=== PATIENT | female | born 1950 | race Caucasian/White ===

== ENCOUNTER 2016-04-11 18:19 | Emergency (ER) | payer OTHER, BC ==
[2016-04-11 18:50] VITALS: BP 150/95; PULSE 63; RESP 16; TEMP 97.9; O2SAT 94
--- NOTE | 2016-04-11 19:29 | UCPHY ---
H & P Time Seen by Provider: 04/11/16 18:48 Patient Type: New HPI/ROS: This patient reports a lesion to the plantar aspect of the right foot that is causing her mild discomfort that is gradually increasing. She 1st noticed the sore area on her foot after hiking in [place] while on vacation 8 days ago. The patient is a nurse and she describes mild induration swelling and moderate discomfort that of increased over the past handful of days. ROS: No fevers or other constitutional symptoms. No other skin lesions. No HEENT complaints. No pulmonary complaints. No GI complaints. 7 point ROS is otherwise negative. Past Medical/Surgical History: Otherwise healthy Smoking Status: Never smoked Physical Exam: Physical Exam Vital signs are normal. General: No acute distress Eyes: Pupils equal and react to light. Extraocular motions are intact. No conjunctival injection Lungs: No respiratory distress. Cardiac: Brisk capillary refill is intact throughout. Pulses are 2+ and symmetric in the affected extremity. Skin: On the plantar aspect of the patient's right foot there is a 5 mm area of fluctuance surrounded by 1.5 cm of mild erythema and tenderness. No other skin rash or lesions. Neuro: Alert and oriented x3 with no sensorimotor deficits. Initial differential diagnosis: Furuncle, foreign body with infection Constitutional: Initial Vital Signs Temperature (C) 36.6 C 04/11/16 18:47 Heart Rate 63 04/11/16 18:47 Respiratory Rate 16 04/11/16 18:47 Blood Pressure 150/95 H 04/11/16 18:47 O2 Sat (%) 94 04/11/16 18:47 O2 Delivery Mode Room Air Allergies/Adverse Reactions: benzoin Allergy (Verified 04/11/16 18:46) Home Medications: Medication Instructions Recorded Doxycycline Hyclate [Vibramycin 100 mg PO BID #20 cap 04/11/16 100 MG (*)] Hydrocodone/APAP 5/325 [[place] 1 - 2 tab PO Q4PRN PRN #12 tab 04/11/16 5/325 (*)] Synthroid 04/11/16 MDM/Departure - MDM Diagnostics: Wound cultures pending Procedures: I&D abscess: After verbal consent, chlorhexidine scrub, 27 gauge needle with 1 % plain lidocaine-3 mL injected with good effect under sterile conditions I used a 11. Scalpel blade to make a small T-shaped incision 5 mm in size with immediate release of a small amount of purulent material sent for culture. Explored the wound and found no foreign bodies. Irrigated the wound with saline. A dressing is placed. She is placed in a postop shoe. I counseled her regarding treatment plan. No complications - Depart Disposition: Home, Routine, Self-Care Clinical Impression: Furuncle of right foot Condition: Good Instructions: Abscess (ED) Additional Instructions: Diagnosis: Furuncle of right foot Plan: Clean daily with warm soapy water and soak in warm water daily. Ibuprofen and Tylenol or Vicodin for pain control as needed. No driving, alcohol or come Vicodin Doxycycline antibiotic Take yogurt while on doxycycline to prevent diarrhea. Postop shoe for comfort Return for any significant worsening despite the treatment plan Prescriptions: Doxycycline Hyclate [Vibramycin 100 MG (*)] 100 mg PO BID #20 cap Hydrocodone/APAP 5/325 [[place] 5/325 (*)] 1 - 2 tab PO Q4PRN PRN #12 tab PRN Reason: Pain Referrals: ANOOP VELASCO [Primary Care Provider] - As per Instructions - PQRS PQRS Measurement: 134: Depression screening and followup, PRIME MD-PHQ2 (12 years and older) Over the last 2 weeks, how often have you been bothered by any of the following problems? 1. Feeling down, depressed, or hopeless? 2. Little interest or pleasure in doing things? Patient answered no to both 1 and 2 130: Documentation of medications. Reviewed all patient medications, doses, route and frequency. 226: Do you smoke? [No.] 47: 65 and older: Advanced care planning. Patient designates surrogate decision maker as spouse 51: 18 years old and older with diagnosis of COPD, spirometry performance. NA 52: 18 years old and older with COPD and symptoms of COPD or FEV1<60% predicted prescribed a B Agonist. NA
== END 2016-04-11 19:50 | disposition home or self-care (01) ==
LOC: CED 18:19
PROC: 0H9MXZZ Drainage of Right Foot Skin, External Approach (ICD-10-PCS; principal; 2016-04-11)
DX: L02.621 Furuncle of right foot (principal)
CPT/HCPCS: 10060; G0463

== ENCOUNTER → 2017-05-13 | Outpatient (CLI) | payer OTHER | LOC: FIMAGING 15:03 → EDSTATUS 15:04 | PROVIDERS: ATTEND Physician Assistant | DX: M51.36 Other intervertebral disc degeneration, lumbar region (principal); M41.86 Other forms of scoliosis, lumbar region; G91.9 Hydrocephalus, unspecified; Z98.2 Presence of cerebrospinal fluid drainage device ==